=== PATIENT | male | born 1955 | race Caucasian/White ===

== ENCOUNTER 2023-12-29 17:48 | Emergency (ER) | payer MEDICARE, OTHER ==
[2023-12-29] MEDS: Sodium Chloride 0.9% 1,000 ML IV ONE (21:32)
[2023-12-29] MEDS: Sodium Chloride 0.9% 10 ML Syringe FLUSH PRN (21:32)
[2023-12-29] MEDS: fentaNYL 100 MCG/2 ML SDV IVPUSH ONE ×2 (21:32→23:13)
[2023-12-29] MEDS: Metoclopramide 10 MG/2 ML SDV IVPUSH ONE (21:32)
[2023-12-29 21:42] LABS: BASOPHILS PERCENT AUTO 0.2 % (0.0-1.0); EOSINOPHILS PERCENT AUTO 0.4 % (1.0-3.0); HEMATOCRIT 46.7 % (40.0-54.0); HEMOGLOBIN 15.5 g/dL (14.0-18.0); LYMPHOCYTES PERCENT AUTO 10.9 % (20.5-50.1); MEAN CORPUSCULAR HEMOGLOBIN 29.6 pg (27.0-34.0); MEAN CORPUSCULAR HGB CONC 33.2 g/dL (33.0-35.0); MEAN CORPUSCULAR VOLUME 89.3 fL (80-100); MONOCYTES PERCENT AUTO 9.5 % (2-8); PLATELET COUNT,PLT 279 10^3/uL (150-450); RED BLOOD CELL COUNT 5.23 10^6/uL (4.6-6.2); WHITE BLOOD CELL COUNT,WBC 17.1 10^3/uL (5.0-10.0)
[2023-12-29 21:50] LABS: LACTIC ACID 1.5 mmol/L (0.4-2.0)
[2023-12-29 21:51] LABS: INR 0.9 (0.9-1.2); PROTHROMBIN TIME 9.6 SEC (9.0-12.0); PTT,PARTIAL THROMBOPLSTIN TIME 19.7 SEC (22.0-34.0)
[2023-12-29 21:59] LABS: ALBUMIN 3.7 g/dL (3.4-5.0); BILIRUBIN TOTAL 0.8 mg/dL (0.2-1.0); BUN/CREATININE RATIO 14.4 (No establ ref range); CALCIUM 9.5 mg/dL (8.5-10.1); CREATININE 1.18 mg/dL (0.70-1.30); EST CRCL DRUG DOSING (CG) 64.7 mL/min; MAGNESIUM 2.3 mg/dL (1.8-2.4); PROTEIN TOTAL,TP 7.3 g/dL (6.4-8.2)
[2023-12-29] MEDS: cefTRIAXone 2 GM Vial IVPUSH ONE (22:32)
[2023-12-29] MEDS: Iopamidol 612 MG/ML 100 ML Bottle IVPUSH ONE (23:25)
[2023-12-30] MEDS: Ketorolac 30 MG/ML SDV IVPUSH ONE (03:22)
[2023-12-30 03:38] LABS: APPEARANCE,URINE CLEAR (CLEAR); BILIRUBIN,URINE NEGATIVE (NEGATIVE); COLOR,URINE YELLOW (YELLOW); GLUCOSE,URINE NEGATIVE (NEGATIVE); KETONES,URINE TRACE (NEGATIVE); LEUKOCYTE ESTERASE,URINE NEGATIVE (NEGATIVE); NITRITE,URINE NEGATIVE (NEGATIVE); OCCULT BLOOD,URINE NEGATIVE (NEGATIVE); PROTEIN,URINE NEGATIVE (NEGATIVE); UROBILINOGEN,URINE 0.2 mg/dL (0.2-1.0)
[2023-12-30] MEDS: Benzocaine 20% Topical Spray UD MUCMEM ONE (03:50)
[2023-12-30] MEDS: Sodium Chloride 0.9% 1,000 ML IV ONE (03:55)
== END 2023-12-30 05:58 ==
LOC: DL.ED 17:48
DX: K56.609 Unspecified intestinal obstruction, unspecified as to partial versus complete obstruction (principal); Z79.82 Long term (current) use of aspirin; Z79.899 Other long term (current) drug therapy; Z88.1 Allergy status to other antibiotic agents
CPT/HCPCS: 36415; 43752; 74018; 74177; 80053; 81003; 83605; 83690; 83735; 84145; 84484; 85025; 85610; 85730; 87040; 96361; 96374; 96375; 96376; 99285; 99285-25; J0696; J1885; J2765; J3010; J3490; J7030; Q9967